=== PATIENT | male | born 1995 | race Caucasian/White ===

== ENCOUNTER 2016-11-17 19:29 | Emergency (ER) | payer BC ==
[2016-11-17 19:43] VITALS: BP 106/72; PULSE 103; RESP 16; TEMP 98.2; O2SAT 96
[2016-11-17] MEDS ORDERED: IBUPROFEN 200 MG TAB PO ONE (20:11)
--- NOTE | 2016-11-17 20:11 | EDPHY ---
H & P Time Seen by Provider: 11/17/16 19:47 HPI/ROS: CHIEF COMPLAINT: Possible dislocation right pinky finger HISTORY OF PRESENT ILLNESS: 21-year-old [id number] male was playing basketball, jammed his finger nose deformity at the PIP joint of the 5th finger. Occurred shortly prior to arrival. No paresthesia. PHYSICAL EXAM (Prior to examination, patient consented to physical exam, hands were washed and my usual and customary physical exam procedures followed) 1) GENERAL: Well-developed, well-nourished, alert and oriented. Appears to be in no acute distress. 2) HEAD: Normocephalic 3) HEENT: sclera anicteric 4) LUNGS: Breathing comfortably. 5) SKIN: Intact no tenting 6) MUSCULOSKELETAL: deformity of the right 5th digit at the PIP joint consistent with dislocation. 7) NEUROLOGIC: Full sensation two-point discrimination intact prior to reduction. Smoking Status: Never smoked Constitutional: Initial Vital Signs Temperature (C) 36.8 C 11/17/16 19:40 Heart Rate 103 H 11/17/16 19:40 Respiratory Rate 16 11/17/16 19:40 Blood Pressure 106/72 11/17/16 19:40 O2 Sat (%) 96 11/17/16 19:40 O2 Delivery Mode Room Air Allergies/Adverse Reactions: No Known Allergies Allergy (Verified 11/17/16 19:44) Home Medications: Medication Instructions Recorded NK [No Known Home Meds] 11/17/16 MDM/Departure - MDM Imaging Results: Images reviewed by myself Procedures: Procedure: Dislocation reduction. . The dislocation of the right 5th digit PIP joint was reduced using traction counter traction technique without complications. Post reduction the patient's neurovascular exam is normal. Post reduction x-ray demonstrates reduction of the joint to the anatomic position. The procedure was performed by myself. Procedure: Splint A audrey-tape and aluminum finger splint was applied by ER heat treat technician. After application of the splint I returned and re-examined the patient. The splint was adequately immobilizing the joint and distal to the splint the patient's circulation and sensation were intact. Patient shows no signs of compartment syndrome. Was given orthopedic precautions. - Depart Disposition: Home, Routine, Self-Care Clinical Impression: Dislocation of right little finger Qualifiers: Encounter type: initial encounter Qualified Code(s): S63.256A - Unspecified dislocation of right little finger, initial encounter Condition: Good Instructions: Finger Dislocation (ED) Additional Instructions: Return to the ER immediately if you experience discoloration, have worsening pain, numbness, tingling, or any other symptoms that concern you. If you received x-rays in the emergency department today, be advised, that ligamentous , tendon, muscular, and other non-bony injury cannot be fully ruled out. Try to keep your affected extremity elevated above the level of your chest, and keep cold packs on the affected area, for the next 48 hours. Referrals: Carlos Morris MD [Medical Doctor] - 1-2 days without fail (Dr. Marco Antonio Morris is a hand surgeon)
== END 2016-11-17 20:42 | disposition home or self-care (01) ==
PROC: 0RSWXZZ Reposition Right Finger Phalangeal Joint, External Approach (ICD-10-PCS; principal; 2016-11-17)
DX: S63.256A Unspecified dislocation of right little finger, initial encounter (principal); W21.05XA Struck by basketball, initial encounter; Y99.8 Other external cause status; Y93.67 Activity, basketball
CPT/HCPCS: L3925